=== PATIENT | female | born 1980 | race Caucasian/White ===

== ENCOUNTER → 2016-12-13 | Outpatient (CLI) | payer BC, OTHER ==
[~2016-12-13] MED LIST: MELA1TAB5 PO; SERT100T PO; VALA1TAB31 PO
[2016-12-13 17:27] LABS: BASO % 0.3 %; BASO ABS # 0.04 K/uL (0-0.2); COMPLETE YES; EOS % 1.4 %; HEMATOCRIT 31.3 % (37-47); IG% 0.3 %; LYMPH % 33.8 %; MEAN CELL VOLUME 83.2 fL (80-100); MEAN CORPUSCULAR HEMOGLOBIN 27.1 pg (25-34); MEAN CORPUSCULAR HGB CONC 32.6 g/dl (32-36); MEAN PLATELET VOLUME 9.6 fL (7.4-10.4); MONO % 4.7 %; NEUT % 59.5 %; PLATELET COUNT 408 K/uL (130-400); RED BLOOD COUNT 3.76 M/uL (4.2-5.4); WHITE BLOOD COUNT 11.83 K/uL (4.8-10.8)
== END | disposition home or self-care (01) ==
LOC: C.LAB1850 15:57
PROVIDERS: ATTEND Physician Assistant
DX: N92.0 Excessive and frequent menstruation with regular cycle (principal)

== ENCOUNTER → 2016-12-21 | Outpatient (CLI) | payer BC, OTHER | END | disposition home or self-care (01) | LOC: C.PATHSPEC 16:01 | PROVIDERS: ATTEND Obstetrics & Gynecology | DX: N92.0 Excessive and frequent menstruation with regular cycle (principal) ==

== ENCOUNTER → 2017-01-08 | Outpatient (CLI) | payer BC, OTHER ==
[2017-01-08 13:01] LABS: BASO % 0.5 %; BASO ABS # 0.04 K/uL (0-0.2); COMPLETE YES; EOS % 1.5 %; HEMATOCRIT 31.3 % (37-47); IG% 0.2 %; LYMPH % 35.8 %; MEAN CELL VOLUME 82.6 fL (80-100); MEAN CORPUSCULAR HEMOGLOBIN 24.8 pg (25-34); MEAN PLATELET VOLUME 9.7 fL (7.4-10.4); MONO % 6.1 %; NEUT % 55.9 %; PLATELET COUNT 403 K/uL (130-400); RED BLOOD COUNT 3.79 M/uL (4.2-5.4); WHITE BLOOD COUNT 8.65 K/uL (4.8-10.8)
== END | disposition home or self-care (01) ==
LOC: C.LAB1850 11:35
PROVIDERS: ATTEND Obstetrics & Gynecology
DX: N92.0 Excessive and frequent menstruation with regular cycle (principal)

== ENCOUNTER → 2017-01-18 | Day surgery (SDC) | payer BC, OTHER ==
[2016-12-25 12:19] VITALS: Ht 175.3 cm; Wt 102.7 kg
[~2017-01-18] VITALS: Ht 175.3 cm; Wt 102.7 kg
[~2017-01-18] MED LIST changes: +ACETAMINOPHEN 1000 MG/100 ML IV IV ONE; +ATROPINE SULFATE 0.1 MG/ML 5ML SYR IV PRN; +DEXAMETHASONE SOD INJ 4 MG/ML VIAL ONE; +EpHEDrine SULFATE INJ 50 MG/ML AMP IV PRN; +FENTANYL CITRATE INJ 50 MCG/1 ML 2 ML VIAL ONE; +HYDROmorphone INJ 1 MG/ML SYR IV PRN; +KETOROLAC TROMETHAMINE 30 MG/ML VIAL ONE; +LACTATED RINGER'S 1000ML 1,000 ML IV SCH; +LIDOCAINE HCL 2% 2 ML VIAL (20MG/ML) ONE; +MIDAZOLAM HCL 1 MG/ML 2ML VIAL ONE; +ONDANSETRON INJ 2 MG/ML 2 ML VIAL IV PRN; +ONDANSETRON INJ 2 MG/ML 2 ML VIAL ONE; +OXYCODONE/ACETAMINOPHEN 5-325 TAB PO PRN; +PROMETHAZINE HCL INJ 12.5 MG in SODIUM CHLORIDE 0.9% 50ML 50 ML IV PRN; +PROMETHAZINE HCL INJ 25 MG in SODIUM CHLORIDE 0.9% 50ML 50 ML IV PRN; +PROPOFOL IV EMULSION 10 MG/ML 20 ML VIAL IV ONE; +SODIUM CHLORIDE 0.9% 1000ML 1,000 ML IV SCH
--- NOTE | 2017-01-18 06:56 | History & Physical Bridge - [place] ---
H&P Re-Evaluation Bridge Note: I have examined the patient, reviewed the History & Physical and in the interval since the performance of the History & Physical I have noted the following changes of clinical significance: No changes noted
--- NOTE | 2017-01-18 07:36 | [facility] Post Operative Brief Note ---
Immediate Operative Summary Operative Date Jan 18, 2017. Pre-Operative Diagnosis Menorrhagia Post-Operative Diagnosis same Procedure(s) Performed Dilatation And Curettage, Hysteroscopy Endometrial Ablation Surgeon Dr. Jt Shea Supervisor [employer] Surgeon(s) 0 Estimated Blood Loss 5cc Findings Retroverted uterus, sounded to 10cm total, 4cm cervix. 6cm cavity length, 4.5cm cavity width. Burn time 1:15. Specimens A. Endometrial Curettings Drains Bladder emptied prior to procedure Anesthesia general Complication(s) None Disposition Recovery Room / PACU
[2017-01-18] MEDS: FENTANYL CITRATE INJ 50 MCG/1 ML 2 ML VIAL IV PRN ×2 (08:04→08:10)
--- NOTE | 2017-01-18 08:12 | OPERATIVE REPORT ---
DATE OF OPERATION: 01/18/2017 PREOPERATIVE DIAGNOSIS: Menorrhagia. POSTOPERATIVE DIAGNOSIS: Same. PROCEDURES PERFORMED: Dilation and curettage, hysteroscopy and endometrial ablation. SURGEON: Dr. Samantha Shea. JUSTICE COURT JUDGE: None. ESTIMATED BLOOD LOSS: 5 mL. FINDINGS: Retroverted uterus sounded to 10 cm total, 4 cm cervix, 6 cm cavity length, 4.5 cm cavity width, burn time 1 minute 15 seconds. SPECIMENS: Endometrial curettings. DRAINS: Bladder emptied prior to procedure. ANESTHESIA: General. COMPLICATIONS: None. DISPOSITION: Stable and good to recovery room. INDICATIONS FOR PROCEDURE: The patient is a 36-year-old G3, P3 with history of vaginal delivery x3 with heavy irregular periods soaking through greater than 1 pad and tampon per hour who desires permanent treatment. Endometrial biopsy in the office was negative. She had attempted hormonal control in the past and an IUD in the past. These were not successful. Her has a vasectomy. DESCRIPTION OF PROCEDURE: The patient was seen in the preoperative holding area where risks, benefits, alternatives to surgery were reviewed. She had previously signed informed consent in the office under no duress. She was taken to the operating room where general anesthesia was introduced. She was prepared and draped in the usual sterile fashion in the dorsal lithotomy position with feet in candy cane stirrups. A timeout was confirmed. A weighted speculum was placed in the vagina. Cervix was visualized and the anterior lip was grasped with a single tooth tenaculum. The uterus was sounded and measurements were taken. The cervix was gently dilated to admit the hysteroscope. The hysteroscope was then inserted, the cavity was viewed. Pictures were taken. The hysteroscope was withdrawn and a gentle D&C was undertaken with a sharp curette. Next, the NovaSure device was inserted and with the above noted measurements the device was deployed and at the conclusion of the burn the device was carefully removed. Hysteroscope was reinserted and a good burn of all endometrial tissue was noted. All instruments were removed from the vagina. Excellent hemostasis was observed. The patient was awoken from anesthesia and taken to the recovery area in stable and good condition. I attest to the content of the Intraoperative Record and any orders documented therein. Any exception s are noted below.
--- NOTE | 2017-01-18 09:24 | Anesthesia Progress Nt - [facility] ---
Anesthesia Post Op Note Date & Time Jan 18, 2017 at 09:24 Vital Signs Pain Intensity: 4.0 Vital Signs Past 12 Hours Date Time Temp Pulse Resp B/P (MAP) Pulse Ox O2 Delivery O2 Flow Rate FiO2 01/18/17 08:30 37.6 67 14 136/90 (105) 100 Room Air 01/18/17 08:21 74 13 01/18/17 08:21 74 13 01/18/17 08:21 75 13 97 01/18/17 08:21 75 13 97 01/18/17 08:20 130/91 01/18/17 08:20 130/91 01/18/17 08:19 36.6 75 16 130/91 96 Room Air 01/18/17 08:16 83 18 01/18/17 08:16 82 18 134/87 94 01/18/17 08:16 83 18 01/18/17 08:16 82 18 134/87 94 01/18/17 08:15 131/89 01/18/17 08:15 131/89 01/18/17 08:11 82 16 95 01/18/17 08:11 84 16 01/18/17 08:11 82 16 95 01/18/17 08:11 84 16 01/18/17 08:10 133/87 01/18/17 08:10 133/87 01/18/17 08:06 82 16 97 01/18/17 08:06 82 16 01/18/17 08:06 82 16 97 01/18/17 08:06 82 16 01/18/17 08:05 126/89 01/18/17 08:05 126/89 01/18/17 08:01 90 21 01/18/17 08:01 90 21 01/18/17 08:01 89 21 96 01/18/17 08:01 89 21 96 01/18/17 08:00 131/93 01/18/17 08:00 131/93 01/18/17 07:56 87 20 01/18/17 07:56 87 20 01/18/17 07:56 88 20 100 01/18/17 07:56 88 20 100 01/18/17 07:55 123/80 01/18/17 07:55 123/80 01/18/17 07:51 76 15 01/18/17 07:51 77 15 96 01/18/17 07:51 77 15 96 01/18/17 07:51 76 15 01/18/17 07:50 120/72 01/18/17 07:50 120/72 01/18/17 07:46 78 15 01/18/17 07:46 78 15 121/71 94 01/18/17 07:46 78 15 01/18/17 07:46 36.6 77 18 121/71 95 Mask 6 01/18/17 07:46 78 15 121/71 94 01/18/17 06:22 36.9 88 16 119/82 (94) 97 Room Air Notes Mental Status: alert / awake / arousable, participated in evaluation Pt Amnestic to Procedure: Yes Nausea / Vomiting: adequately controlled Pain: adequately controlled Airway Patency, RR, SpO2: stable & adequate BP & HR: stable & adequate Hydration State: stable & adequate Anesthetic Complications: no major complications apparent Doing well. No n/v.
--- NOTE | 2017-01-18 09:35 | Discharge Instructions-SurgCtr ---
Discharge Instructions Date of Service Jan 18, 2017. Visit Reason for Visit: Menorrhagia Discharge Discharge Diagnosis / Problem: menorrhagia Discharge Goals Goal(s): Diagnostic testing, Therapeutic intervention Activity Recommendations Activity Limitations: per Instructions/Follow-up section Anesthesia . Post Anesthesia Instructions: If you have had General Anesthesia or IV Sedation: * Do not drive today. * Resume driving when surgeon permits. * Do not make important decisions or sign legal documents today. * Call surgeon for: 1. Temperature elevations greater than 101 degrees F. 2. Uncontrollable pain. 3. Excessive bleeding. 4. Persistent nausea and vomiting. 5. Medication intolerance (nausea, vomiting or rash). * For nausea and vomiting use only clear liquids such as: tea, soda, bouillon until nausea subsides, then gradually increase diet as tolerated. * If you have any concerns or questions, call your surgeon's office. If physician is unavailable and it is an emergency, call 911 or go to the nearest emergency room. . Instructions / Follow-Up Instructions / Follow-Up ACTIVITY RECOMMENDATIONS: * Avoid tampons, douching, hot tubs, pools, and intercourse until bleeding has stopped. * May shower as usual. * No strenuous activity for 24-48 hours. After 24-48 hours, you may do anything you feel like doing (driving and sports are okay). SPECIAL CARE INSTRUCTIONS: Special Diet: * Mild nausea may occur in the immediate post-operative period. * Take clear liquids such as tea, cola or bouillon until all nausea has subsided; you may then resume your normal diet. Special Care: * Light bleeding and vaginal spotting can last from a few days to 3-4 weeks. Call your doctor if bleeding becomes heavier than the heaviest part of your period. * Check your temperature twice a day for one week. If it goes above 100.4 degrees Fahrenheit (38.0 Celsius), notify your doctor. * Call your doctor's office for an appointment for 6 weeks after your surgery. FOLLOW-UP VISIT: Call your doctor's office for an appointment for 6 weeks after your surgery. Diet Recommendations Home Diet: resume previous diet Procedures Procedures Performed: Dilatation And Curettage, Hysteroscopy Endometrial Ablation with Novasure Pending Studies Studies pending at discharge: yes List of pending studies: endometrial curettings Medical Emergencies . Who to Call and When: Medical Emergencies: If at any time you feel your situation is an emergency, please call 911 immediately. . Non-Emergent Contact Non-Emergency issues call your: Primary Care Provider, Postal Service Clerk . . "Provider Documentation" section prepared by Samantha Shea. .
[2017-01-18 09:45] VITALS: BP 128/80; PULSE 68; TEMP 37; O2SAT 100
== END | disposition home or self-care (01) ==
LOC: X.SURG 06:05
PROVIDERS: ATTEND Obstetrics & Gynecology
DX: N92.0 Excessive and frequent menstruation with regular cycle (principal); F41.8 Other specified anxiety disorders; Z87.891 Personal history of nicotine dependence

== ENCOUNTER → 2017-06-18 | Outpatient (CLI) | payer OTHER ==
[~2017-06-18] MED LIST changes: -ACETAMINOPHEN 1000 MG/100 ML IV IV ONE; -ATROPINE SULFATE 0.1 MG/ML 5ML SYR IV PRN; -DEXAMETHASONE SOD INJ 4 MG/ML VIAL ONE; -EpHEDrine SULFATE INJ 50 MG/ML AMP IV PRN; -FENTANYL CITRATE INJ 50 MCG/1 ML 2 ML VIAL ONE; -HYDROmorphone INJ 1 MG/ML SYR IV PRN; -KETOROLAC TROMETHAMINE 30 MG/ML VIAL ONE; -LACTATED RINGER'S 1000ML 1,000 ML IV SCH; -LIDOCAINE HCL 2% 2 ML VIAL (20MG/ML) ONE; -MIDAZOLAM HCL 1 MG/ML 2ML VIAL ONE; -ONDANSETRON INJ 2 MG/ML 2 ML VIAL IV PRN; -ONDANSETRON INJ 2 MG/ML 2 ML VIAL ONE; -OXYCODONE/ACETAMINOPHEN 5-325 TAB PO PRN; -PROMETHAZINE HCL INJ 12.5 MG in SODIUM CHLORIDE 0.9% 50ML 50 ML IV PRN; -PROMETHAZINE HCL INJ 25 MG in SODIUM CHLORIDE 0.9% 50ML 50 ML IV PRN; -PROPOFOL IV EMULSION 10 MG/ML 20 ML VIAL IV ONE; -SODIUM CHLORIDE 0.9% 1000ML 1,000 ML IV SCH
[2017-06-18 12:58] LABS: HEMOGLOBIN A1C 5.8 % (4.5-5.6)
[2017-06-18 13:05] LABS: ALBUMIN 3.7 gm/dl (3.4-5.0); ALT/SGPT 14 U/L (12-78); BLOOD UREA NITROGEN 18 mg/dl (7-18); CALCIUM 8.9 mg/dl (8.5-10.1); CARBON DIOXIDE 27 mmol/L (21-32); CHOLESTEROL 221 mg/dl (0-200); CREATININE 0.71 mg/dl (0.60-1.20); GLUCOSE 106 mg/dl (70-99); POTASSIUM 4.2 mmol/L (3.5-5.1); SODIUM 138 mmol/L (136-145)
[2017-06-18 13:08] LABS: ALKALINE PHOSPHATASE 104 U/L (45-117); AST/SGOT 7 U/L (15-37); LDL CHOLESTEROL CALCULATED 144 mg/dl; TOTAL PROTEIN 7.6 gm/dl (6.4-8.2)
== END | disposition home or self-care (01) ==
LOC: C.LABBFT 08:30
PROVIDERS: ATTEND Nurse Practitioner
DX: E78.5 Hyperlipidemia, unspecified (principal); Z79.899 Other long term (current) drug therapy; Z86.32 Personal history of gestational diabetes